=== PATIENT | female | born 1965 | race Caucasian/White ===

== ENCOUNTER → 2016-04-04 | Outpatient (CLI) | payer BC ==
[~2016-04-04] MED LIST: CITA20TA4 PO; LISI-725 PO; LUBI8CAP4 PO; SIMV20TA2 PO
[2016-04-04 13:46] LABS: INFLUENZA A PCR Neg for Influ A (NEG); INFLUENZA B PCR Neg for Influ B (NEG)
== END | disposition home or self-care (01) ==
LOC: C.LABBFT 10:24
PROVIDERS: ATTEND Nurse Practitioner
DX: J02.9 Acute pharyngitis, unspecified (principal); R68.89 Other general symptoms and signs

== ENCOUNTER → 2016-08-16 | Outpatient (CLI) | payer BC ==
--- NOTE | 2016-08-19 13:13 | MAMMOGRAPHY REPORT ---
BILATERAL DIGITAL SCREENING MAMMOGRAM TOMOSYNTHESIS WITH CAD: 08/16/2016 CLINICAL HISTORY: Routine screening. TECHNIQUE: Breast tomosynthesis in addition to standard 2D mammography was performed. Current study was also evaluated with a Computer Aided Detection (CAD) system. COMPARISON: Comparison is made to exams dated: 08/15/2015 mammogram, 08/11/2014 mammogram, 08/09/2013 mamm ogram, 08/06/2012 mammogram, 07/12/2011 mammogram, and 07/10/2010 mammogram - [facility] . BREAST COMPOSITION: The tissue of both breasts is heterogeneously dense, which may obscure small mas ses. FINDINGS: No suspicious masses, calcifications, or areas of architectural distortion are noted in ei ther breast. There has been no significant interval change compared to prior exams. There are stable post surgical changes in the left lower inner quadrant. Bilateral benign appearing calcifications a re not significantly changed. IMPRESSION: ACR BI-RADS CATEGORY 2: BENIGN There is no mammographic evidence of malignancy. A 1 year screening mammogram is recommended. The pa tient will receive written notification of the results. Approximately 10% of breast cancers are not detected with mammography. A negative mammographic report should not delay biopsy if a clinically suggestive mass is present. Oanh Byrnes M.D. ah/:08/16/2016 16:38:46 Net Repairer: Divya COLLINS(Ayan)(M), [facility] letter sent: Normal 1/2 BI-RADS Code: ACR BI-RADS Category 2: Benign
== END | disposition home or self-care (01) ==
LOC: C.MAMM 07:53
PROVIDERS: ATTEND Internal Medicine
DX: Z12.31 Encounter for screening mammogram for malignant neoplasm of breast (principal)

== ENCOUNTER 2016-10-24 17:31 | Emergency (ER) | payer BC ==
[~2016-10-24] VITALS: Ht 165.1 cm; Wt 72.1 kg
[~2016-10-24 17:31] MED LIST changes: -LUBI8CAP4 PO
[2016-10-24 18:05] VITALS: TEMP 37; Ht 165.1 cm; Wt 72.1 kg
[2016-10-24] MEDS ORDERED: LUBI8CAP4 PO (18:15)
--- NOTE | 2016-10-24 18:58 | DIAGNOSTIC IMAGING REPORT ---
LEFT WRIST 5 VIEWS CLINICAL HISTORY: Left wrist pain. FINDINGS: 5 views of the left wrist are obtained. No prior studies are available for comparison at the time of dictation. The skeletal structures are well mineralized. No fracture is seen. The joint spaces of the wrist are well-maintained. Mild soft tissue swelling is noted. IMPRESSION: Mild soft tissue swelling with no radiographic evidence of left wrist fracture. Electronically signed by: Vishal Narvaez M.D. 10/24/2016 6:57 PM Dictated Date/Time: 10/24/2016 6:56 PM
--- NOTE | 2016-10-24 19:23 | EMERGENCY ROOM VISIT NOTE ---
ED Visit Note First contact with patient: 18:08 CHIEF COMPLAINT: Wrist pain HISTORY OF PRESENT ILLNESS: This 51-year-old female patient presents to the emergency department ambulatory complaining of pain in the left wrist. The patient reports that 5-6 nights ago, she was in bed and was tossing and turning. She feels that she may have bent her left wrist backward. She states she has had persistent, dull pain since then, which has been worse at night. The pain is worse with movement of the wrist. The patient states the pain is dull and 5/10. The pain sometimes radiates into her first, second, and third fingers. No laceration, no weakness. No numbness or tingling. The patient denies any other injury. The patient is able to move their fingers and elbow without difficulty. The patient has not had a previous fracture to this wrist. The patient has taken no medication at home for the pain. REVIEW OF SYSTEMS: A 6 system review of systems was performed with positives and pertinent negatives in the HPI. ALLERGIES: No known drug allergies MEDICATIONS: Lisinopril, Amitiza, Zocor PMH: No pertinent past medical history SOCIAL HISTORY: The patient lives locally with her . She is a smoker. She admits to occasional alcohol use. PHYSICAL EXAM: Vital Signs: Reviewed Nurse's notes, vital signs stable. GENERAL : This is a 51-year-old female, in no acute distress, but appears to be in pain , well-developed, well-nourished. NEURO: Alert and oriented to person place and time. Normal sensation to light and sharp touch. MUSCULOSKELETAL: There is no deformity of the left wrist. There is tenderness and minimal edema over the radial aspect of the right wrist. There is no snuff box tenderness. Range of motion is full. There is no tenderness of the elbow, hand or fingers. Engraver Machine strength 5/5. Radial pulse 2+. SKIN: Normal and intact. The hand is warm and well perfused with capillary refill less than 2 seconds. RADIOGRAPHIC FINDINGS: LEFT WRIST 5 VIEWS CLINICAL HISTORY: Left wrist pain. FINDINGS: 5 views of the left wrist are obtained. No prior studies are available for comparison at the time of dictation. The skeletal structures are well mineralized. No fracture is seen. The joint spaces of the wrist are well-maintained. Mild soft tissue swelling is noted. IMPRESSION: Mild soft tissue swelling with no radiographic evidence of left wrist fracture. EMERGENCY DEPARTMENT COURSE: I examined the patient. An X-ray of the left wrist was reviewed by myself and radiology and showed no acute findings. The patient may have a tendinitis. A velcro thumb spica splint was placed under my direction and the position was satisfactory. Neurovascular status rechecked and intact. Conservative measures were discussed with the patient. She was encouraged to follow-up with orthopedics as needed. The patient was discharged home in good condition. DIAGNOSIS: Left wrist pain Problem List Surgical Problems: (1) H/O: hysterectomy Status: Resolved Current/Historical Medications Scheduled Lisinopril (Zestril), 20 MG PO DAILY Lubiprostone (Amitiza), 1 TAB PO DAILY Simvastatin (Zocor), 20 MG PO QPM Allergies Coded Allergies: No Known Allergies (Verified , 07/20/13) Vital Signs Date Time Temp Pulse Resp B/P (MAP) Pulse Ox O2 Delivery O2 Flow Rate FiO2 10/24/16 19:45 89 20 136/74 96 10/24/16 18:05 37.0 92 16 139/84 97 Room Air Departure Information Impression Primary Impression: Wrist pain, left Dispostion Home / Self-Care Condition GOOD Referrals Lc Castaneda M.D. (PCP) Patient Instructions [facility] Additional Instructions For pain control, you can use the following [id number] medicines (if >12 yo): - Regular strength (325mg/tab) Tylenol (acetaminophen) 2 tabs every 4-6 hours as needed. Do not exceed 12 tablets in a 24 hour period. Avoid taking more than 4 grams (4000 mg) of Tylenol per day. This includes any other sources of acetaminophen you may take on a regular basis. - Regular strength (200 mg/tab) Advil (ibuprofen) 1-2 tabs every 4-6 hours as needed. Do not exceed a dose of 3200 mg per day. Wear the wrist brace for the next 4-5 days, then as needed. You may apply ice to the wrist for pain. Follow-up with your primary care provider next week for further evaluation. Return to the emergency department with any worsening or new/concerning symptoms.
[2016-10-24 19:45] VITALS: BP 136/74; PULSE 89; O2SAT 96
== END 2016-10-24 19:45 | disposition home or self-care (01) ==
LOC: C.EDB 17:31 → C.EDD 19:45
DX: M25.532 Pain in left wrist (principal); F17.200 Nicotine dependence, unspecified, uncomplicated; Z90.710 Acquired absence of both cervix and uterus; Z79.899 Other long term (current) drug therapy

== ENCOUNTER 2021-10-03 06:30 | Observation (INO) ==
--- NOTE | 2021-09-24 14:02 | Anesthesiology Consultation ---
Date of Service September 24, 2021 Assessment & Plan (1) Encounter for pre-operative examination: - COVID screening: Per assessment on 09/24: No known COVID-19 positive contacts or current COVID-19 related symptoms. Travel screen negative. Surgeon arranging preop COVID testing. Awaiting results. - Anxiety: "Severe" - per PAT RN phone interview 09/24/21, patient states that Dr. Tavarez said that she could have something for her anxiety "as soon as she gets to the hospital" - Etoh use: Per PAT RN phone interview, patient reports 3+ beers/day. Chart Review Chart Review: Acceptable Risk for Surgery and Patient NOT seen in Pre Admission Testing History Surgery Operation Date: 10/03/21 09:20 Proposed Procedures p Bilateral Breat Mastectomies, Left Ina Lymph Node Biopsy NM Injection and Scan at 800 - Tomás M. DO Corby, FACS Height/Weight Height: 5 ft 5 in Weight: 72.575 kg Allergies Allergy/AdvReac Type Severity Reaction Status Date / Time fish oil Allergy Mild hives Verified 09/24/21 13:16 Medications Home Medications Medication Instructions Recorded Confirmed Last Taken simvastatin 20 mg tablet 20 mg PO HS #90 tabs 05/11/21 09/24/21 Unknown duloxetine 30 mg capsule,delayed 30 mg PO QPM 09/24/21 09/24/21 Unknown release irbesartan 150 mg tablet 150 mg PO QPM 09/24/21 09/24/21 Unknown Past Medical History Medical History Adenocarcinoma of left breast Anxiety De Quervain's tenosynovitis Degenerative disc disease Depression Glaucoma B/L, no meds currently Hyperlipidemia Hypertension Infiltrating ductal carcinoma of upper-outer quadrant of left breast in female Ventral hernia Past Family History Family History Mother Family history of diabetes mellitus Breast cancer Father Colorectal cancer Bladder cancer Lung cancer Grandmother Stroke Denies family history of Ovarian cancer Prostate cancer Coronary heart disease Myocardial infarction Past Surgical History Surgical History History of bilateral tubal ligation History of breast surgery left benign tissue removed History of section x2 History of colonoscopy History of esophagogastroduodenoscopy (EGD) History of hysterectomy History of lumbar discectomy History of tooth extraction History of umbilical hernia repair x3 Nausea and vomiting after administration of anesthetic agent Single episode Status post wrist surgery left Social History Smoking Status: Current every day smoker tobacco type: cigarettes Smoking cigarettes per day: <10/day Do You Dip or Chew Tobacco: No Hx Alcohol Use: Yes Alcohol type: beer alcohol intake frequency: 3 or more drinks per day Hx Substance Use: Yes (medical marijuana) substance use type: marijuana (4 months ago) Lab Results Anesthesia Preop Results Results Anesthesia Widget: WBC 12.37 K/ul (4.8-10.8) H 09/17/21 Hgb 12.7 g/dl (12.0-16.0) 09/17/21 Hct 37.8 % (34.1-44.9) 09/17/21 Plt 339 K/uL (130-400) 09/17/21 Na 139 mmol/L (136-145) 09/17/21 K 4.0 mmol/L (3.5-5.1) 09/17/21 Cl 106 mmol/L (98-107) 09/17/21 CO2 26 mmol/L (21-32) 09/17/21 BUN 11 mg/dl (6-23) 09/17/21 Creat 0.65 mg/dl (0.6-1.2) 09/17/21 Glucose Level 95 mg/dl (70-99(Fasting)) 09/17/21 Testing Electrocardiogram Date: 09/17/21 NSR at 92bpm. LAFB. No significant change compared to 08/12/17 per foundation drill operator helper review. Chest X-Ray Date: 09/17/21 Findings: + NAD
[~2021-10-03 06:30] MED LIST changes: -CITA20TA4 PO; -LISI-725 PO; +LR 15ML/HR IV SCH; -SIMV20TA2 PO; +ceFAZolin 2000MG 2,000 MG/15 ML SYR IV SCH
[2021-10-03] MEDS ORDERED: ONDANSETRON INJ 2 MG/ML 2 ML VIAL IV PRN ×2 (08:19→16:24)
[2021-10-03] MEDS ORDERED: HYDROmorphone INJ 2 MG/ML SYR/VIAL IV PRN (08:19)
[2021-10-03] MEDS ORDERED: ATROPINE SULFATE 0.1 MG/ML 10ML SYR IV PRN (08:19)
[2021-10-03] MEDS ORDERED: ePHEDrine sulfate 50 MG/ML AMP IV PRN (08:19)
[2021-10-03] MEDS ORDERED: fentaNYL citrate 100 MCG/2 ML VIAL IV PRN (08:19)
[2021-10-03] MEDS ORDERED: LORazepam 0.5 MG TAB PO STA (09:15)
[2021-10-03] MEDS ORDERED: LORazepam 0.5 MG TAB ONE (09:22)
--- NOTE | 2021-10-03 09:31 | Nuclear Medicine Report ---
NM sentinel node w breast img CLINICAL HISTORY: left breast sentinel node biopsy COMPARISON STUDY: Breast MRI August 30, 2021. TECHNIQUE: Patient presents today for left breast lymphoscintigraphy. The procedure, risks and benefi ts were discussed with the patient and informed consent was obtained. The procedure was performed by Dr. Gamboa following a timeout. Skin of the left breast was prepped in typical fashion. A total of 519.56 uCi of Lymphoseek was injected in 5 left periareolar intradermal aliquots. No immediate compl ications were evident. FINDINGS: 15 minute image demonstrated focal marked uptake within the left axilla consistent with nod al uptake. This lymph node was marked in the skin with an indelible marker. IMPRESSION: Left breast lymphoscintigraphy with radiotracer uptake within a left axillary lymph node which was marked on the skin, as described above. ACT 112: Negative or not required by law. Electronically signed by: Jose Luis Gamboa M.D. 10/03/2021 9:30 AM
[2021-10-03] MEDS ORDERED: BUPIVACAINE 0.5 % 5 MG/1 ML PF 10ML VIAL ONE (10:10)
[2021-10-03] MEDS ORDERED: PROPOFOL IV EMULSION 10 MG/ML 20 ML VIAL IV ONE ×2 (10:19→13:25)
[2021-10-03] MEDS ORDERED: LIDOCAINE 2% MPF LOCAL 5 ML VIAL INFIL ONE (10:20)
[2021-10-03] MEDS ORDERED: ROCURONIUM BROMIDE 10 MG/ML 5 ML VIAL IV ONE ×2 (10:21→11:40)
[2021-10-03] MEDS ORDERED: fentaNYL citrate 100 MCG/2 ML VIAL ONE (10:21)
[2021-10-03] MEDS ORDERED: MIDAZOLAM HCL 1 MG/ML 2ML VIAL ONE (10:21)
--- NOTE | 2021-10-03 10:23 | History & Physical Bridge Note ---
Date of Service October 03, 2021 History & Physical Bridge Note I have examined the patient, reviewed the History & Physical and in the interval since the performance of the History & Physical I have noted the following changes of clinical significance: no changes noted axillary lymph node marked in nuc med.
[2021-10-03] MEDS ORDERED: BUPIVACAINE 0.5 % 5 MG/1 ML MPF 30ML VIAL ONE (10:31)
[2021-10-03] MEDS ORDERED: BUPIVACAINE LIPOSOME 1.3% 266 MG/20 ML VIAL ONE (10:32)
[2021-10-03] MEDS ORDERED: DEXAMETHASONE SOD INJ 4 MG/ML VIAL ONE ×2 (11:22)
[2021-10-03] MEDS ORDERED: HYDROmorphone INJ 2 MG/ML SYR/VIAL ONE (11:41)
[2021-10-03] MEDS ORDERED: ONDANSETRON INJ 2 MG/ML 2 ML VIAL ONE (13:21)
--- NOTE | 2021-10-03 13:39 | Operative Report ---
PG Post Operative Report Pre & Post Diagnosis Operation Date: 10/03/21 10:00 Pre-Op Diagnosis: Adenocarcinoma left breast Post-Op Diagnosis: Adenocarcinoma left breast I identified the patient and participated in the time-out.: Yes Procedure Operation Date: 10/03/21 10:00 Actual Procedures p Bilateral Breast Mastectomies with Left [place] Lymph Node Biopsy(Bilateral) - Tomás Tavarez DO, FACS Surgeon Tomás Tavarez DO, HUEY Ion Implant Machine Operator Kayla Cardenas PA; Otto Mcneil Estimated Blood Loss 50 Findings Consistent with Post-Op Diagnosis Right prophylactic mastectomy performed. Left simple mastectomy performed, left axillary sentinel lymph node biopsy performed through mastectomy incision. Drains placed, good hemostasis. Specimens Right breast prophylactic mastectomy Right breast additional skin Left axillary sentinel lymph node Left breast mastectomy Left breast additional skin Drains 10 mm TALIA drains bilaterally Anesthesia Type General Complications none Disposition Accompanied Patient To Recovery: No Disposition: Recovery Room Indications 56-year-old female with left breast adenocarcinoma and multiple other areas of calcifications with atypical cells. After discussion of her options, the patient elected for mastectomy. She also elected for contralateral prophylactic mastectomy. Plan for bilateral mastectomy with left sentinel lymph node biopsy. The risks of the procedure were discussed, all questions were answered, and the patient agreed to proceed with surgery as planned. Description of Procedure Prior to surgery the patient had a sentinel lymph node injection in nuclear medicine at the left breast. Lymphoscintigraphy was performed and confirmed uptake into the left axilla and the skin was marked. Prior to surgery we confirmed the presence of a sentinel lymph node with uptake in the left axilla with the gamma probe. The patient was properly identified, consented, and taken to the operating room where she was placed in the supine position. General endotracheal anesthesia was induced. SCDs and a safety belt were placed. Preoperative antibiotics were administered. The patient received bilateral nerve blocks from anesthesia prior to the procedure. The patient's bilateral chest and axilla were prepped and draped in the standard sterile fashion. Surgical timeout was performed and all parties were in agreement that this was the correct patient and procedure to be performed and we continued as planned. We began on the right side for the prophylactic mastectomy. A transversely oriented elliptical incision was made that encompassed the nipple-arreolar complex on the right. Flaps were raised to the clavicle superiorly, the sternum medially, and the rectus sheath inferiorly. The breast was then taken off the chest wall including the pectoralis fascia from medial to lateral. We then continued the dissection along the lateral border of the pectoralis muscle, the specimen was removed and passed off the table after being oriented. The wound was irrigated and hemostasis achieved. The wound was packed and we turned our attention to the left breast. A transversely oriented elliptical incision was made that encompassed the nipple areolar complex on the left. Flaps were raised to the clavicle superiorly sternum medially and the rectus sheath inferiorly. The breast was taken off of the chest wall including the pectoralis fashion from medial to lateral. We then continued the dissection along the lateral border of the pectoralis muscle with care to take the axillary tail. The specimen was removed and passed off the table after being oriented. During the dissection we removed the sentinel lymph node. The clavipectoral fascia was incised. The gamma probe was utilized to localize the sentinel lymph node. The lymph node was identified, ligated proximally and distally with 3-0 silk ties, and excised. Reading with the gamma probe measured 1600 ex vivo. The axilla was reexamined and any lymph node measuring greater than 10% of the original lymph node was excised. 2 additional lymph nodes were removed. The axilla was then reexamined and was silent. We then completed the mastectomy. The wound was irrigated and hemostasis was confirmed. Both sides were temporarily closed with cammie and there appeared to be redundant dog ears on the lateral portion. These were excised. The cammie were then removed and we proceeded with skin closure. 10 mm TALIA drains were placed underneath the mastectomy flap on both sides. These exited inferior to the incision and were secured into place with 2-0 nylon sutures. The skin was closed with interrupted 3-0 Vicryl deep dermal sutures, followed by 4-0 Monocryl running subcuticular suture. Dermabond was placed over the wounds. Drain sponges were placed. Fluffed gauze and an Refugio wrap were then placed. The patient was extubated in the operating room and taken to the PACU where she recovered without apparent incident. All sponge, instrument and needle counts were correct at the conclusion of the procedure. The patient tolerated the procedure well. The physician's assistants were present and scrubbed for the entirety of the case. They are critical in positioning the patient, prepping and draping, retraction and exposure, excision of the specimen, closure of the skin incisions, placement of the dressings. I attest to the content of the Intraoperative Record and any orders documented therein. Any exceptions are noted below.
--- NOTE | 2021-10-03 15:10 | Anesthesiology Progress Note ---
Date of Service October 03, 2021 Anesthesia Post Procedure Vital Signs Vital Signs: Temp Pulse Pulse Resp BP Pulse Ox O2 Del Method 10/03/21 15:00 36.4 C L 96 H 14 123/72 94 Oxymask 10/03/21 14:50 110 H 14 120/73 98 Oxymask 10/03/21 14:40 91 H 17 98/50 L 94 Oxymask 10/03/21 14:30 36.3 C L 85 18 89/64 L 94 Oxymask 10/03/21 06:59 36.7 C 101 H 20 143/88 H 95 Room Air O2 Flow Rate 10/03/21 15:00 2 10/03/21 14:50 5 10/03/21 14:40 5 10/03/21 14:30 5 10/03/21 06:59 Transfer of Care Handoff Completed per policy Notes Mental Status: alert / awake / arousable and participated in evaluation Patient Amnestic to Procedure: Yes Nausea / Vomiting: adequately controlled Pain: adequately controlled Airway Patency, RR, SpO2: stable & adequate BP & HR: stable & adequate Hydration State: stable & adequate Anesthetic Complications: no major complications apparent and Pt Satisfied with anesthetic care
[2021-10-03] MEDS ORDERED: oxyCODONE/ACETAMINOPHEN 5mg/325mg TAB PO PRN (16:24)
[2021-10-03] MEDS ORDERED: HYDROmorphone INJ 0.5 MG/0.5 ML SYR IV PRN ×2 (16:24)
[2021-10-03] MEDS: oxyCODONE/ACETAMINOPHEN 5mg/325mg TAB PO PRN ×2 (18:01→21:36)
[2021-10-03] MEDS: LACTATED RINGER'S 1,000 ML IV SCH (18:22)
[2021-10-03] MEDS: ceFAZolin 2000MG 2,000 MG/15 ML SYR IV SCH (19:59)
[2021-10-03] MEDS ORDERED: DULoxetine HCL 30 MG CAP PO SCH (21:00)
[2021-10-03] MEDS ORDERED: IRBESARTAN 150 MG TAB PO SCH (21:00)
[2021-10-04] MEDS: oxyCODONE/ACETAMINOPHEN 5mg/325mg TAB PO PRN ×3 (01:42→13:41)
[2021-10-04] MEDS: ceFAZolin 2000MG 2,000 MG/15 ML SYR IV SCH ×2 (03:38→11:16)
[2021-10-04] MEDS: LACTATED RINGER'S 1,000 ML IV SCH (06:18)
--- NOTE | 2021-10-04 08:20 | Surgery Progress Note ---
Date of Service October 04, 2021 Assessment & Plan (1) Adenocarcinoma of left breast: Plan: POD#1 bilateral mastectomy with left sentinel lymph node biopsy Labs today show Hbg 9.2 (12.7); will obtain new h&h at noon to ensure stable TALIA x2 serosang, L side 40cc, R side 60cc Pt has been taking PO pain medication and it has overall been manageable Surgical dressings in place, c/d/i Will check on pt later today as well as follow up on blood work at noon. if stable and pt is doing well we will discharge her to home Will need TALIA drain teaching prior to dispo F/u with Dr. Tavarez in 1-2 weeks Admission and Anticipated Discharge Date Admission Date: October 03, 2021 Supervising Physician Co-Signing Physician Notes pnt s&e, agree with above. POD#1 bilateral mastectomy and Left SNLbx. Pain controlled, no issues. afvss. flaps viable, no hematoma/seroma. incisions w/o infection. drains ss. H&H down from preop, repeat stable. d/c to home, f/u next week in clinic for TALIA removal. return precautions given, wound care instructions and activity restrictions reviewed. Subjective Patient is feeling a little bit more sore and stiff this AM than yesterday. Overall though feeling okay. Tolerating a diet. Pain is manageable with prn medications. Hopeful to go home later today. Physical Exam Physical Exam: awake/alert, sitting up in bed Respiratory: normal respiratory effort Chest (Breasts): Additional Comments: TALIA x2 serosang. Surgical dressings (jacobo and fluff bandages in place) Results & Data ([facility]) Vital Signs (Past 12 Hours) Vital Signs Temp Pulse Resp BP BP Pulse Ox O2 Del Method 10/04/21 07:32 36.8 C 92 H 17 109/69 94 Room Air 10/04/21 01:43 36.8 C 82 17 100/63 94 Room Air 10/03/21 21:40 36.8 C 85 17 108/64 95 Room Air PG Care Time/CCT Total # of Minutes Spent Total Time Spent with Patient: Total time spent is greater than 50% in coordination of care (as documented) at patient's floor/unit and/or counseling patient: Coding Level of Care Code None Diagnoses Adenocarcinoma of left breast C50.912
[2021-10-04 08:28] LABS: Basophils # (auto) 0.03 K/uL (0-0.2); Basophils % (auto) 0.2 %; Eosinophils # (auto) 0.02 K/uL (0-0.50); Eosinophils % (auto) 0.1 %; Hematocrit (blood only) 27.6 % (34.1-44.9); Hemoglobin 9.2 g/dl (12.0-16.0); Immature Granulocytes # (auto) 0.07 K/uL (0.00-0.02); Immature Granulocytes % (auto) 0.5 %; Lymphocytes # (auto) 2.95 K/uL (1.2-3.4); Lymphocytes % (auto) 19.1 %; Mean Corpuscular Hemoglobin 32.4 pg (25.0-34.0); Mean Corpuscular Hgb Conc 33.3 g/dL (32.0-36.0); Mean Corpuscular Volume 97.2 fL (80.0-100.0); Mean Platelet Volume 9.4 fL (9.4-12.3); Monocytes # (auto) 1.67 K/uL (0.24-0.82); Monocytes % (auto) 10.8 %; Neutrophils # (auto) 10.69 K/uL (1.4-6.5); Neutrophils % (auto) 69.3 %; Platelet Count 313 K/uL (130-400); RDW Coefficient of Variation 12.7 % (11.5-14.5); RDW Standard Deviation 45.3 fL (36.4-46.3); Red Blood Count 2.84 M/uL (3.93-5.22); White Blood Count 15.43 K/ul (4.8-10.8)
[2021-10-04 08:57] LABS: Calcium 8.4 mg/dl (8.5-10.1); Est GFR (African American) 87.5 ml/min; Est GFR (Non-African American) 75.5 ml/min; Potassium 4.6 mmol/L (3.5-5.1)
[2021-10-04 12:09] LABS: Basophils # (auto) 0.04 K/uL (0-0.2); Basophils % (auto) 0.3 %; Eosinophils # (auto) 0.05 K/uL (0-0.50); Eosinophils % (auto) 0.3 %; Hematocrit (blood only) 26.9 % (34.1-44.9); Hemoglobin 8.9 g/dl (12.0-16.0); Immature Granulocytes # (auto) 0.07 K/uL (0.00-0.02); Immature Granulocytes % (auto) 0.5 %; Lymphocytes # (auto) 3.27 K/uL (1.2-3.4); Lymphocytes % (auto) 21.5 %; Mean Corpuscular Hemoglobin 32.6 pg (25.0-34.0); Mean Corpuscular Hgb Conc 33.1 g/dL (32.0-36.0); Mean Corpuscular Volume 98.5 fL (80.0-100.0); Mean Platelet Volume 9.4 fL (9.4-12.3); Monocytes # (auto) 1.57 K/uL (0.24-0.82); Monocytes % (auto) 10.3 %; Neutrophils # (auto) 10.19 K/uL (1.4-6.5); Neutrophils % (auto) 67.1 %; Platelet Count 294 K/uL (130-400); RDW Coefficient of Variation 12.8 % (11.5-14.5); RDW Standard Deviation 45.7 fL (36.4-46.3); Red Blood Count 2.73 M/uL (3.93-5.22); White Blood Count 15.19 K/ul (4.8-10.8)
--- NOTE | 2021-10-07 21:07 | Discharge Summary ---
Date of Service October 04, 2021 Principal Diagnosis left breast cancer s/p bilateral mastectomy Discharge Exam awake/alert, no distress Chest (Breasts) Additional Comments: bilateral chest incisions c/d/i; dermabond glue overtop. no signs of infection. bilateral TALIA drains serosang Discharge Data Allergies Allergy/AdvReac Type Severity Reaction Status Date / Time fish oil Allergy Mild hives Verified 10/03/21 06:57 Procedures Performed Operation Date: 10/03/21 10:00 Actual Procedures p Bilateral Breast Mastectomies with Left Mobile Lymph Node Biopsy(Bilateral) - Tomás Tavarez, DO, FACS Ordered Studies 10/03/21 05:00 US - OR guided needle placemen Routine Hospital Course (1) Adenocarcinoma of left breast: This is a 56y F with a PMH of left breast cancer who reported to the [facility] on 10/03/21 for a planned bilateral mastectomy with left sentinel lymph node biopsy with Dr. Tavarez. The patient tolerated the procedure well, see op note for full details. The patient recovered in the PACU and was transferred to the med/surg unit in stable condition for overnight observation with TALIA drain x2. Her diet was advanced as tolerated and pain remained controlled on prn medications. On POD#1 the patient's pain was manageable on an oral regimen, she was tolerating a diet, incisions c/d/i, and TALIA drain x2 were serosang in appearance. The RN performed TALIA drain teaching with the patient and her who demonstrated understanding. She continued to wear the REFUGIO bandage around her chest for compression. A repeat Hbg was obtained in the afternoon as there was a slight drop from her pre-op hbg after surgery. It came back stable. The patient was subsequently discharged to home with her surgical drains in place and discharge instructions were reviewed. She was instructed to call the office with her drain output early next week and to follow up with the surgeon in 1-2 weeks. She was discharged to home without event. Total Time Total Time Spent Total Time Spent (In Minutes): 15 Discharge Plan Discharge Items Patient Disposition: Home - Self-Care Reason For Visit: left breast sentinel node biopsy Discharge Diagnosis: bilateral breast mastectomy left sentinel lymph node biopsy Activity: Per Instructions section Lifting: No more than 25 pounds Bathing Comment: may shower starting 10/04/21; no soaking in tubs/pools Exercise/Sports: Wait until after follow-up appointment Driving/Machine Use: wait at least 1 week; no driving while taking narcotics for pain Non-emergency contact: Surgeon Call non-emergency contact if: you have any medication questions, your symptoms worsen, your pain is not controlled, your pain is worsening, you have a fever, your temperature is above 101.5, your wound has increased redness, your wound has increased drainage and your wound pain has increased Follow-up/Referrals: Sophia Pires, PAYohanC [Primary Care Provider] - Tomás Tavarez DO, FACS [Physician] - 10/15/21 9:15 am () Diet: Regular Addtl Attending Provider Instructions: You should continue to either wear an Refugio bandage or a compressive bra. You may keep gauze over the incisions for comfort Please care for your surgical drains as you have been instructed prior to discharge from the hospital. Empty drains 2-3x/daily and record output *Please call our office on Friday10/08/21 to discuss your drain output to see if any can be removed in the near future Pending Studies at Discharge: Yes Studies:: surgical pathology Stand-Alone Forms: [facility], Opioid Pain Management Medications and DC Order Prescriptions: New oxycodone-acetaminophen [Percocet] 5-325 mg tablet 1 - 2 tab PO .q4-6h PRN (Reason: pain, for initial therapy, max 6 tabs per day) Qty: 15 0RF Continued simvastatin 20 mg tablet 20 mg PO HS Qty: 90 3RF irbesartan 150 mg tablet 150 mg PO QPM Rx Instructions: Noon duloxetine 30 mg capsule,delayed release(DR/EC) 30 mg PO QPM Rx Instructions: @1430 Discharge Orders: Discharge Order (Routine); Ordered 10/04/21 Ordered By: Kayla Cardenas Admission Data Admit Date/Time: 10/03/21 14:08 Attending Provider: Tomás Tavarez Admit Provider: Tomás Tavarez Primary Care Provider: Sophia Pires Other Interventions: Discharge Summary Assessment (RN) Last Done: 10/04/21 13:56 Coding Level of Care Code D/C DAY MANAGEMENT <30 MINS Diagnoses Adenocarcinoma of left breast C50.912
== END 2021-10-04 14:16 | disposition home or self-care (01) ==
LOC: ASU 06:30 → 3N 06:30